=== PATIENT | male | born 1980 | race Caucasian/White ===

== ENCOUNTER 2022-12-23 09:21 | Emergency (ER) | payer MEDICAID, SELFPAY ==
[2022-12-23] VITALS (10 sets, daily range): BP systolic 109–149; BP diastolic 81–101; PULSE 52–68; RESP 17–20; TEMP 36.4–36.6; O2SAT 99–100; BMI 18.9; BMI 18.1
--- NOTE | 2022-12-23 09:28 | XR_ITS ---
FINAL REPORT TECHNIQUE: Chest PA & Lateral CLINICAL HISTORY: PAIN IN RIGHT LUNG COMPARISON: 01/2018 FINDINGS: 2 views of the chest were performed. The heart size is normal. The mediastinum is within normal limits. There is no acute cardiopulmonary process. There are no pleural effusions. There is no pneumothorax. The bony thorax appears intact. IMPRESSION: No acute cardiopulmonary process. Reviewed, Interpreted and Dictated by Steven Handley III, MD Transcribed by Shaun Casey Authenticated and [facility]
--- NOTE | 2022-12-23 10:18 | EXP.UTC ---
Discharge Plan Disposition Patient Disposition: Still a Patient Prescriptions Prescriptions: No Action ondansetron 4 MG Tab.Rapdis 4 mg PO Q8HP PRN (Reason: Nausea) Qty: 20 0RF Referrals Follow up/Referrals: Oscar Butt MD [Staff Physician] - See instructions Provider,MD Mitul [Primary Care Provider] - See instructions Activity Restrictions/Add. Instructions Additional Instructions/Restrictions: At this time it was felt you are safe to be discharged home. If new or worsening symptoms please do not hesitate to return the emergency department. Please call and schedule appointment with Dr. Butt as soon as you are able. Clinical Impressions Clinical Impression: Chest pain, Pleurisy Instructions Patient Instructions: DI for Pleurisy Discharge ED Provider: Migue Bernal [facility] General Chief complaint: Chest Pain Stated complaint: pain in lungs Mode of Arrival: Ambulatory Source of Information: Patient Limitations: No Limitations Time Seen by Provider: 12/23/22 10:18 Description of Symptoms (Recalled from Triage Doc. by RN): PATIENT C/O SUDDEN SHARP PAIN TO RIGHT LUNG AREA THAT STARTED ON THURSDAY HEENT Symptoms (Recalled from RN notes): No Resp Symptoms (Recalled from RN notes): Yes Skin Symptoms (Recalled from RN notes): No MS Symptoms (Recalled from RN notes): No Functional Status (Recalled from RN notes): WNL History of Present Illness Provider Complaint: Patient states that he was standing in line at the store on Thursday and suddenly got a sharp pain that was sanket in the middle of his lower mid chest that has since moved into the right side of his chest States that the pain is sharp and has continued since Thursday and worse when he takes a deep breath States that he hasnt been sick or anything and denies coughing denies feeling SOA States that pain kept him up most of the night last night so today he came in to get checked Related Data Previous Rx's Medication Instructions Recorded ondansetron 4 mg disintegrating 4 mg PO Q8HP PRN Nausea ##20 01/14/18 tablet Allergies Allergy/AdvReac Type Severity Reaction Status Date / Time acetaminophen Allergy Unknown Verified 01/14/18 12:06 [From DARVOCET-N] propoxyphene Allergy Unknown Verified 01/14/18 12:06 [From DARVOCET-N] Worker's Comp Is this a Worker's Comp case?: No PFSH PFSH Disclaimer: The information contained in this section may have been updated after the patient was seen, as this information can be updated by other users. Social History (Updated 12/23/22 @ 13:54 by Migue Bernal MD) Smoking Status: Current every day smoker tobacco type: cigarettes alcohol intake: never current occupational status: other Travel in the last 8 weeks: None ROS Obtained: Yes All systems reviewed & no additional complaints except as documented and Yes Systems reviewed as appropriate & no additional complaints except as documented Constitutional Constitutional: Reports system reviewed and no additional complaints, except as documented, Reports as per HPI, Denies body ache, Denies chills and Denies fever(s) ENT Ears, Nose, Mouth, and Throat: Reports system reviewed and no additional complaints, except as documented and Reports as per HPI Cardiovascular Cardiovascular: Reports system reviewed and no additional complaints, except as documented and Reports as per HPI Respiratory Respiratory: Reports system reviewed and no additional complaints, except as documented, Reports as per HPI, Denies shortness of breath, Denies chest congestion and Reports pain with breathing (right side of chest describes as sharp and sudden onset on Thursday) Gastrointestinal Gastrointestingal: Reports system reviewed and no additional complaints, except as documented and as per HPI Physical Exam General General appearance: alert and in no apparent distress ENT ENT exam: Present mucous membranes moist Respiratory Respiratory exam: Present normal lung
--- NOTE | 2022-12-23 10:50 | PC.NURSE ---
pt arrived to er from [facility]
--- NOTE | 2022-12-23 10:52 | ECG_ITS ---
APPROVED REPORT Exam: Resting ECG HR:62 bpm ECG Measurements Heart Rate 62 AXES ME 155 P 71 QRSd 115 QRS 86 QT 405 T 51 QTc 411 Conclusion SINUS RHYTHM WITH SINUS ARRHYTHMIA MODERATE INTRAVENTRICULAR CONDUCTION DELAY [110+ ms QRS DURATION] BORDERLINE ECG UNCONFIRMED REPORT Electronically signed by : Brodie Jimenez MD 12/23/2022 17:11:29
--- NOTE | 2022-12-23 10:56 | HMH.EDGENADL ---
Discharge Plan Disposition Patient Disposition: Still a Patient Prescriptions Prescriptions: No Action ondansetron 4 MG Tab.Rapdis 4 mg PO Q8HP PRN (Reason: Nausea) Qty: 20 0RF Referrals Follow up/Referrals: Provider,MD Mitul [Primary Care Provider] - See instructions Oscar Butt MD [Staff Physician] - See instructions Activity Restrictions/Add. Instructions Additional Instructions/Restrictions: At this time it was felt you are safe to be discharged home. If new or worsening symptoms please do not hesitate to return the emergency department. Please call and schedule appointment with Dr. Butt as soon as you are able. Clinical Impressions Clinical Impression: Chest pain, Pleurisy Discharge ED Provider: Migue Bernal General Adult HPI General Chief complaint: Chest Pain Stated complaint: pain in lungs Time Seen by Provider: 12/23/22 10:18 Mode of Arrival: Ambulatory Source of Information: Patient Limitations: No Limitations Description of Symptoms (Recalled from ER Triage Doc. by RN): PATIENT C/O SUDDEN SHARP PAIN TO RIGHT LUNG AREA THAT STARTED ON THURSDAY History of Present Illness HPI narrative: Patient is a 42-year-old male with past medical history of TBI, chronic smoking who presents emergency department for evaluation of chest pain to transfer patient emergent care. Onset was acute, occurring on Thursday. Initially substernal however since has migrated to his right chest. It does not radiate, it is persistent, nonmodifiable. Patient has no cough, fever, other acute complaints at this time. Related Data Previous Rx's Medication Instructions Recorded ondansetron 4 mg disintegrating 4 mg PO Q8HP PRN Nausea ##20 01/14/18 tablet Allergies Allergy/AdvReac Type Severity Reaction Status Date / Time acetaminophen Allergy Unknown Verified 01/14/18 12:06 [From DARVOCET-N] propoxyphene Allergy Unknown Verified 01/14/18 12:06 [From DARVOCET-N] [facility] Disclaimer: The information contained in this section may have been updated after the patient was seen, as this information can be updated by other users. Social History Smoking Status: Current every day smoker tobacco type: cigarettes alcohol intake: never current occupational status: other Travel in the last 8 weeks: None ROS Obtained: Yes Systems reviewed as appropriate & no additional complaints except as documented Physical Exam General General appearance: alert and in no apparent distress Head Head exam: atraumatic and normocephalic Eye Eye exam: Present PERRL and EOMI ENT ENT exam: Present mucous membranes moist Neck Neck exam: Present normal inspection Chest Chest inspection: Present normal inspection and symmetric chest wall rise Respiratory Respiratory exam: Present normal lung sounds bilaterally; Absent respiratory distress Cardiovascular Cardiovascular exam: Present regular rate and normal rhythm Abdominal Exam Abdominal exam: Present soft; Absent tenderness Extremities Exam Extremities exam: Present normal inspection Neurological Exam Neurological exam: Present alert; Absent motor sensory deficit Psychiatric Psychiatric exam: Present normal affect Skin Skin exam: Present warm and dry Medical Decision Making Duc Inquiry Pt receiving controlled substance: No Vital Signs: 12/23/22 09:45 12/23/22 10:54 12/23/22 11:01 Temperature 97.8 F Temperature Source Oral Pulse Rate 65 62 Pulse Rate [Apical] Pulse Rate [Left Brachial] 68 Respiratory Rate 19 20 Blood Pressure 149/98 H 138/101 H Blood Pressure [Left Arm] 139/90 Blood Pressure Mean 106 111 Blood Pressure Mean [Left Arm] 106 Blood Pressure Source [Left Arm] Automatic Cuff Blood Pressure Position [Left Arm] Sitting 02 Sat by Pulse Oximetry 100 100 99 Oxygen Delivery Method Room Air 12/23/22 11:30 12/23/22 10:52 12/23/22 12:00 Temperature 97.6 F Temperature Source Oral Pulse Rate 60 62
[2022-12-23 11:37] LABS: Basophils % 0.5 % (0.1-2.0); Eosinophils # 0.2 K/mm3 (0.0-0.4); Eosinophils % 2.2 % (0.1-12.0); Hematocrit 46.2 % (42.0-52.0); Hemoglobin 14.6 g/dL (14.1-18.0); Lymphocytes # 1.5 K/mm3 (0.7-4.5); Lymphocytes % 22.3 % (10-50); Mean Corpuscular HGB Conc 31.6 g/dL (31.8-35.4); Mean Corpuscular Volume 82.5 fl (80-94); Mean Platelet Volume 8.1 fl (7.4-10.4); Monocytes # 0.3 K/mm3 (0.1-1.0); Monocytes % 4.5 % (1.7-9.3); Neutrophils # 4.7 K/mm3 (1.8-7.8); Neutrophils % 70.5 % (37.0-80.0); Platelet Count 219 K/mm3 (142-424); Red Cell Distribution Width 14.2 % (11.5-17.5); White Blood Count 6.7 K/mm3 (4.8-10.8)
[2022-12-23 11:42] LABS: Chloride 105 mmol/L (98-107); Potassium 4.3 mmoL/L (3.5-5.1); Sodium 142 mmol/L (136-145)
[2022-12-23 11:44] LABS: Blood Urea Nitrogen 16 mg/dl (9-20); Creatinine Clearance Estimated 81 mL/min (50-200); Estimated Glomerular Filt Rate 82 ml/min (>60); GFR (African American) 99 ML/MIN (>60)
[2022-12-23 11:45] LABS: Alanine Aminotransferase 17 U/L (12-78); Albumin Level 4.5 g/dl (3.5-5.0); Albumin/Globulin Ratio 1.6 (1.1-1.8); Alkaline Phosphatase 68 U/L (38-126); Anion Gap 11.3 mEq/L (5-15); Aspartate Amino Transferase 32 U/L (17-59); Bilirubin,Total 0.4 mg/dl (0.2-1.3); Carbon Dioxide 30 mmol/L (22.0-30.0); Globulin 2.9 g/dL (1.3-3.2); Glucose 112 mg/dl (74-100); Total Protein,Serum 7.4 g/dl (6.3-8.2)
--- NOTE | 2022-12-23 11:56 | PC.NURSE ---
checked on pt stated nothing needed at this time,call light at bs
[2022-12-23 12:00] LABS: Troponin I < 0.01 ng/ml (0.00-0.034)
--- NOTE | 2022-12-23 12:31 | PC.NURSE ---
Rounded on patient; no needs at this time. Patient sitting up on ED stretcher playing on cell phone. Call holman within reach
--- NOTE | 2022-12-23 12:43 | PC.NURSE ---
DR BANEGAS AT BEDSIDE TO UPDATE PT
--- NOTE | 2022-12-23 13:11 | PC.NURSE ---
notified lab sending green top tube up at this time for second troponin, per ER MD Bernal wants a 2 hour.
[2022-12-23 13:49] LABS: Troponin I < 0.01 ng/ml (0.00-0.034)
== END 2022-12-23 14:08 | disposition still patient (30) ==
LOC: UTC 10:47 → ER 10:47
PROVIDERS: Emergency Provider Emergency Medicine
DX: R07.9 Chest pain, unspecified (principal); R09.1 Pleurisy; I44.7 Left bundle-branch block, unspecified; F17.210 Nicotine dependence, cigarettes, uncomplicated; Z87.820 Personal history of traumatic brain injury
CPT/HCPCS: 71046; 80053; 84484; 85025; 93005; 99285

== ENCOUNTER 2024-11-02 09:13 | Outpatient (CLI) | payer MEDICAID, SELFPAY ==
[2024-11-02 15:25] LABS: Hematocrit 40.5 % (42.0-52.0); Hemoglobin 12.8 g/dL (14.1-18.0); Immature Granulocytes % 0.2 %; Mean Corpuscular HGB Conc 31.6 g/dL (31.8-35.4); Mean Corpuscular Hemoglobin 25.4 pg (27.0-31.2); Mean Corpuscular Volume 80.5 fl (80-94); Nucleated Red Blood Cells % 0 %; Platelet Count 222 K/mm3 (142-424); Red Blood Count 5.03 M/mm3 (4.60-6.20); Red Cell Distribution Width-SD 45.0 fL; White Blood Count 5.8 K/mm3 (4.8-10.8)
[2024-11-02 15:35] LABS: Albumin Level 4.7 g/dl (3.5-5.0); Chloride 102 mmol/L (98-107)
[2024-11-02 15:36] LABS: Potassium 4.3 mmoL/L (3.5-5.1); Sodium 137 mmol/L (136-145)
[2024-11-02 15:38] LABS: Alanine Aminotransferase 14 U/L (12-78); Albumin/Globulin Ratio 2.0 (1.1-1.8); Alkaline Phosphatase 65 U/L (38-126); Anion Gap 10.3 mEq/L (5-15); Aspartate Amino Transferase 31 U/L (17-59); Bilirubin,Total 0.9 mg/dl (0.2-1.3); Blood Urea Nitrogen 18 mg/dl (9-20); Carbon Dioxide 29 mmol/L (22.0-30.0); Creatinine,Serum 0.80 mg/dl (0.66-1.25); Estimated Glomerular Filt Rate 105 ml/min (>60); GFR (African American) 126 ML/MIN (>60); Globulin 2.4 g/dL (1.3-3.2); Iron 136 ug/dL (49-181); Total Protein,Serum 7.1 g/dl (6.3-8.2)
[2024-11-02 15:39] LABS: Calcium 9.8 mg/dl (8.4-10.2); Cholesterol 132 mg/dl (140-200); Glucose 113 mg/dl (74-100); HDL Cholesterol 50 mg/dl (40-60); Triglycerides 61 mg/dl (30-150)
[2024-11-02 15:50] LABS: Total Iron Binding Capacity 262 ug/dL (261-462)
[2024-11-02 16:29] LABS: Hepatitis C Ab Qual. W/ RFX NEGATIVE (Negative)
[2024-11-02 17:53] LABS: Thyroid Stimulating Hormone 1.28 uIU/mL (0.465-4.68)
[2024-11-02 17:57] LABS: Ferritin 85.8 ng/ml (17.9-464)
[2024-11-02 19:56] LABS: Hemoglobin A1C 5.6 % (4.0-6.0)
[2024-11-03 05:48] LABS: Hepatitis B Surface Antigen Negative (Negative)
== END 2024-11-02 23:59 | disposition home or self-care (01) ==
LOC: LAB.DROPOF 11-03 14:45
PROVIDERS: PCP Nurse Practitioner Family; Visit Provider Nurse Practitioner Family
DX: E16.2 Hypoglycemia, unspecified (principal); R07.9 Chest pain, unspecified; I10 Essential (primary) hypertension; Z11.59 Encounter for screening for other viral diseases
CPT/HCPCS: 80053; 80061; 82728; 83036; 83540; 83550; 84443; 85025; 86803; 87340; 87389

== ENCOUNTER 2024-11-14 12:36 | Emergency (ER) | payer MEDICAID, SELFPAY ==
[2024-11-14 12:47] VITALS: BP 132/80; PULSE 58; RESP 18; TEMP 37.4; O2SAT 98; BMI 18.1
[2024-11-14 13:00] VITALS: BP 129/81; PULSE 70; O2SAT 100
--- NOTE | 2024-11-14 13:00 | HMH.EDGENADL ---
Discharge Plan Disposition Patient Disposition: Home, Self-Care Prescriptions Prescriptions: New promethazine 25 mg tablet 25 mg PO Q6H PRN (Reason: nausea and vomiting) Qty: 20 0RF No Action multivitamin [Daily Multi-Vitamin] Tablet 1 tab PO DAILY Referrals Follow up/Referrals: Ayden Hickey APRN [Primary Care Provider, [facility]] - See instructions Activity Restrictions/Add. Instructions Additional Instructions/Restrictions: Increase fluids and rest. Drink Gatorade or Pedialyte. Take nausea meds as needed. Return to ER if increased problems and concerns. Clinical Impressions Clinical Impression: Gastroenteritis, Food poisoning Instructions Patient Instructions: How to Avoid Food Poisoning, DI for Diarrhea and Traveler's Diarrhea -- Adult, DI for Nausea -- Adult Print Language Print Language: Tamazight Discharge ED Provider: Warren Quezada Adult HPI <Mehreen Ace (ED), [employer] SCIENCE INSTRUCTOR - Last Filed: 11/14/24 17:14> General Chief complaint: Nausea/Vomiting/Diarrhea Stated complaint: vomiting, weakness, low fever, chills Time Seen by Provider: 11/14/24 12:57 Mode of Arrival: Wheelchair Source of Information: Patient and Spouse Description of Symptoms (Recalled from ER Triage Doc. by RN): pt presents to ED c/o nausea, vomitting, weakness. spouse at bedside reports that they ate breakfast at [employer] this morning. around 1030 am after eating pt began to have nausea, vomitting and weakness. History of Present Illness HPI narrative: 44-year-old male presents to the ED with complaint of nausea and vomiting 6 or 7 times since he ate [employer] breakfast this morning. Significant other states that he ate and then 10 minutes later started vomiting, having body aches and chills. He has been complaining of weakness as well. Says he was fine yesterday and last night and up until he ate breakfast this morning from [employer]. He has had no illness recently. He does have history of subdural hematomas when he was 18. He recently started going back to the PCP for these. His PCP scheduled him for an MRI of his brain to check on his headaches from the subdural hematomas when he was a kid. Related Data Home Medications ?Medication ?Instructions ?Recorded ?Confirmed multivitamin (Daily Multi-Vitamin 1 tab PO DAILY 11/02/24 11/02/24 tablet) Previous Rx's ?Medication ?Instructions ?Recorded promethazine 25 mg tablet 25 mg PO Q6H PRN nausea and 11/14/24 vomiting #20 tabs Allergies Allergy/AdvReac Type Severity Reaction Status Date / Time propoxyphene (From Allergy Unknown Hives Verified 11/14/24 12:54 DARVOCET-N) PFS <Mehreen Ace (ED), ADJ[employer] POLIT[employer] SCIENCE INSTRUCTOR - Last Filed: 11/14/24 17:14> [facility] Disclaimer: The information contained in this section may have been updated after the patient was seen, as this information can be updated by other users. Medical History (Updated 11/14/24 @ 17:15 by Mehreen Ace (ED), [employer] SCIENCE INSTRUCTOR) HTN, goal below 140/80 Hypoglycemia Shaking Anxiety Testicular pain TBI (traumatic brain injury) Subdural hematoma Surgical History (Updated 11/02/24 @ 08:18 by Deepa Flores MA) History of nasal surgery Family History (Updated 11/02/24 @ 08:17 by Deepa Flores MA) Mother Cancer Hypertension Diabetes Arthritis Sister Autonomic neuropathy due to disorder of immune function Grandmother Arthritis Father DDD (degenerative disc disease) Arthritis Social History (Updated 12/23/22 @ 13:54 by Migue Bernal MD) Smoking Status: Current every day smoker tobacco type: cigarettes alcohol intake: never current occupational status: other Travel in the last 8 weeks?: None Have you lived/traveled outside US in past 30 days?: No Contact w/someone who lives/traveled outside US past 30 days?: No Exposure to someone with infectious disease in past 14 days?: No Do you have a fever (greater than 100.4 F or 38 C)?: No Have you tested positive for COVID-19?: No Exposed to someone with COVID-19 in past 14 days?: No Do you have a sore throat?: No Do you have a cough?: No Do you have any weakness?: No Do you have any diarrhea?: No Are you experiencing any unusual bleeding?: No Do you have any muscle aches/pain?: No Do you have any abdominal pain?: No Are you experiencing loss of taste or smell?: No <Mehreen Ace (ED), [employer] POLIT[employer] SCIENCE INSTRUCTOR - Last Filed: 11/14/24 17:14> ROS Obtained: Yes Systems reviewed as appropriate & no additional complaints except as documented Constitutional Constitutional: Reports as per HPI Physical Exam <Mehreen Alvasue (ED), ADJ[employer]CT POLIT[employer] SCIENCE INSTRUCTOR - Last Filed: 11/14/24 17:14> General General appearance: alert Head Head exam: normocephalic Eye Eye exam: Present normal appearance, PERRL and EOMI ENT ENT exam: Present mucous membranes moist Neck Neck exam: Present full ROM and trachea midline Respiratory Respiratory exam: Present normal lung sounds bilaterally Cardiovascular Cardiovascular exam: Present regular rate, normal rhythm, normal heart sounds, +S1 and +S2 Abdominal Exam Abdominal exam: Present soft and normal bowel sounds Abdominal tenderness: Present epigastrium exam: Present normal inspection Extremities Exam Extremities exam: Present normal inspection, full ROM and normal capillary refill Neurological Exam Neurological exam: Present alert and oriented X3 Skin Skin exam: Present warm, dry and intact Medical Decision Making <Mehreen Ace (ED), [employer] POLIT[employer] SCIENCE INSTRUCTOR - Last Filed: 11/14/24 17:14> Medical Records Screening: Per USPSTF and CDC recommendations, given the prevalence of disease in our region, it is our hospital?s policy to screen for HIV and viral Hepatitis for all patients aged 18 and over and those with ongoing risk factors. Duc Inquiry Pt receiving controlled substance: No Duc was queried for this patient: No Vital Signs: 11/14/24 12:47 11/14/24 13:00 11/14/24 13:30 Temperature 99.3 F Temperature Source Oral Pulse Rate 70 59 L Pulse Rate [Right Radial] 58 L Respiratory Rate 18 Blood Pressure 129/81 129/85 Blood Pressure [Right Arm] 132/80 Blood Pressure Mean [Right Arm] 97 02 Sat by Pulse Oximetry 98 100 100 Oxygen Delivery Method Room Air 11/14/24 13:53 11/14/24 17:31 Temperature 98.8 F Temperature Source Oral Pulse Rate 47 L 62 Pulse Rate [Right Radial] Respiratory Rate 18 Blood Pressure 124/79 117/72 Blood Pressure [Right Arm] Blood Pressure Mean [Right Arm] 02 Sat by Pulse Oximetry 100 Oxygen Delivery Method Room Air Lab Data Lab Results 11/14/24 12:45: WBC 8.2, RBC 5.12, Hgb 13.2 L, Hct 39.7 L, MCV 77.5 L, MCH 25.8 L, MCHC 33.2, RDW 14.7, Plt Count 260, MPV 10.6 H, Neut % (Auto) 77.2, Lymph % (Auto) 16.9, Meeker % (Auto) 4.9, Eos % (Auto) 0.1, Baso % (Auto) 0.5, Neut # (Auto) 6.3, Lymph # (Auto) 1.4, Meeker # (Auto) 0.4, Eos # (Auto) 0.0, Baso # (Auto) 0.0, Sodium 136, Potassium 3.5, Chloride 104, Carbon Dioxide 25, Anion Gap 10.5, BUN 13, Creatinine 0.80, Estimated Creat Clear 97, Estimated GFR 105, Est GFR ( Amer) 126, Glucose 123 H, Calcium 9.7, Magnesium 1.9, Total Bilirubin 0.6, AST 34, ALT 17, Alkaline Phosphatase 72, Troponin I < 0.01, Total Protein 7.5, Albumin 4.1, Globulin 3.4 H, Albumin/Globulin Ratio 1.2, Lipase 137 11/14/24 12:45 11/14/24 12:45 Orders (Tests/Meds): ED MEDICATIONS Discontinued Medications Generic Name Dose Route Start Last Admin Trade Name Freq PRN Reason Stop Dose Admin Acetaminophen 1,000 mg 11/14/24 13:16 11/14/24 13:29 Acetaminophen 1,000mg/100ml Vial IV 11/14/24 13:17 1,000 mg ONCE ONE Administration Famotidine 20 mg 11/14/24 13:15 11/14/24 13:30 Famotidine 20mg/2ml Vial IV 11/14/24 13:16 20 mg ONCE ONE Administration Sodium Chloride 1,000 mls @ 999 mls/hr 11/14/24 13:15 11/14/24 13:39 Sod Chlor 0.9% 1000ml Bag IV 11/14/24 14:15 999 mls/hr .Q1H1M ONE Administration Sodium Chloride 1,000 mls @ 999 mls/hr 11/14/24 15:52 11/14/24 15:57 Sod Chlor 0.9% 1000ml Bag IV 11/14/24 16:52 999 mls/hr .Q1H1M ONE Administration Ondansetron HCl 4 mg 11/14/24 15:52 11/14/24 15:57 Ondansetron 4mg/2ml Vial IV 11/14/24 15:53 4 mg ONCE ONE Administration Promethazine HCl 25 mg 11/14/24 13:15 11/14/24 13:38 Promethazine Hcl 25mg/Ml 1ml Vial IV 11/14/24 13:16 25 mg ONCE ONE Administration Sodium Chloride 8 ml 11/14/24 13:15 11/14/24 13:29 Sodium Chloride 0.9% 10ml Vial IV 12/14/24 13:14 8 ml NEEDED PRN Administration dilute pepcid Sodium Chloride 25 ml 11/14/24 13:15 11/14/24 13:39 Sodium Chloride 0.9% 25ml Bag IV 11/14/24 13:16 25 ml ONCE ONE Administration ORDERS Category Date Time Status CT abdomen pelvis wo con Stat Cat Scan 11/14/24 13:55 Completed CBC [Complete Blood Count Auto Diff] Stat Lab 11/14/24 12:45 Completed Comprehensive Metabolic Panel Stat Lab 11/14/24 12:45 Completed Lipase Stat Lab 11/14/24 12:45 Completed Magnesium Stat Lab 11/14/24 12:45 Completed Trop I [Troponin I] Stat Lab 11/14/24 12:45 Completed Medical Decision Narrative: patient is a 44-year-old male presenting to the emergency department for evaluation of nausea, vomiting and bodyaches since he ate breakfast this morning from [employer]. Patient is hemodynamically stable and nontoxic-appearing upon arrival, afebrile. Differential diagnosis includes food poisoning, viral illness, among others. Workup will be conducted with hematologic labs, specific imaging. Initial inventions include crystalloid bolus, analgesics including Tylenol, famotidine and Phenergan. Initial workup reviewed by me hematologic labs are remarkable for normal white count, essentially normal labs. Imaging informally interpreted by me and remarkable for nothing acute. Formal imaging read remarkable for nothing acute. Upon repeat evaluation patient had 1 bag of fluids and Phenergan for nausea and he continues to vomit. Ordered another bag of fluids and Zofran. After having the other bag of fluids and Zofran patient feels improved and wants to go home. We discussed return precautions. Patient safe for discharge home. <Warren Quezada MD - Last Filed: 11/15/24 13:29> Vital Signs: 11/14/24 12:47 11/14/24 13:00 11/14/24 13:30 Temperature 99.3 F Temperature Source Oral Pulse Rate 70 59 L Pulse Rate [Right Radial] 58 L Respiratory Rate 18 Blood Pressure 129/81 129/85 Blood Pressure [Right Arm] 132/80 Blood Pressure Mean [Right Arm] 97 02 Sat by Pulse Oximetry 98 100 100 Oxygen Delivery Method Room Air 11/14/24 13:53 11/14/24 17:31 Temperature 98.8 F Temperature Source Oral Pulse Rate 47 L 62 Pulse Rate [Right Radial] Respiratory Rate 18 Blood Pressure 124/79 117/72 Blood Pressure [Right Arm] Blood Pressure Mean [Right Arm] 02 Sat by Pulse Oximetry 100 Oxygen Delivery Method Room Air Lab Data Lab Results 11/14/24 12:45: WBC 8.2, RBC 5.12, Hgb 13.2 L, Hct 39.7 L, MCV 77.5 L, MCH 25.8 L, MCHC 33.2, RDW 14.7, Plt Count 260, MPV 10.6 H, Neut % (Auto) 77.2, Lymph % (Auto) 16.9, Meeker % (Auto) 4.9, Eos % (Auto) 0.1, Baso % (Auto) 0.5, Neut # (Auto) 6.3, Lymph # (Auto) 1.4, Meeker # (Auto) 0.4, Eos # (Auto) 0.0, Baso # (Auto) 0.0, Sodium 136, Potassium 3.5, Chloride 104, Carbon Dioxide 25, Anion Gap 10.5, BUN 13, Creatinine 0.80, Estimated Creat Clear 97, Estimated GFR 105, Est GFR ( Amer) 126, Glucose 123 H, Calcium 9.7, Magnesium 1.9, Total Bilirubin 0.6, AST 34, ALT 17, Alkaline Phosphatase 72, Troponin I < 0.01, Total Protein 7.5, Albumin 4.1, Globulin 3.4 H, Albumin/Globulin Ratio 1.2, Lipase 137 Orders (Tests/Meds): ED MEDICATIONS Discontinued Medications Generic Name Dose Route Start Last Admin Trade Name Freq PRN Reason Stop Dose Admin Acetaminophen 1,000 mg 11/14/24 13:16 11/14/24 13:29 Acetaminophen 1,000mg/100ml Vial IV 11/14/24 13:17 1,000 mg ONCE ONE Administration Famotidine 20 mg 11/14/24 13:15 11/14/24 13:30 Famotidine 20mg/2ml Vial IV 11/14/24 13:16 20 mg ONCE ONE Administration Sodium Chloride 1,000 mls @ 999 mls/hr 11/14/24 13:15 11/14/24 13:39 Sod Chlor 0.9% 1000ml Bag IV 11/14/24 14:15 999 mls/hr .Q1H1M ONE Administration Sodium Chloride 1,000 mls @ 999 mls/hr 11/14/24 15:52 11/14/24 15:57 Sod Chlor 0.9% 1000ml Bag IV 11/14/24 16:52 999 mls/hr .Q1H1M ONE Administration Ondansetron HCl 4 mg 11/14/24 15:52 11/14/24 15:57 Ondansetron 4mg/2ml Vial IV 11/14/24 15:53 4 mg ONCE ONE Administration Promethazine HCl 25 mg 11/14/24 13:15 11/14/24 13:38 Promethazine Hcl 25mg/Ml 1ml Vial IV 11/14/24 13:16 25 mg ONCE ONE Administration Sodium Chloride 8 ml 11/14/24 13:15 11/14/24 13:29 Sodium Chloride 0.9% 10ml Vial IV 12/14/24 13:14 8 ml NEEDED PRN Administration dilute pepcid Sodium Chloride 25 ml 11/14/24 13:15 11/14/24 13:39 Sodium Chloride 0.9% 25ml Bag IV 11/14/24 13:16 25 ml ONCE ONE Administration ORDERS Category Date Time Status CT abdomen pelvis wo con Stat Cat Scan 11/14/24 13:55 Completed CBC [Complete Blood Count Auto Diff] Stat Lab 11/14/24 12:45 Completed Comprehensive Metabolic Panel Stat Lab 11/14/24 12:45 Completed Lipase Stat Lab 11/14/24 12:45 Completed Magnesium Stat Lab 11/14/24 12:45 Completed Trop I [Troponin I] Stat Lab 11/14/24 12:45 Completed Medical Decision Narrative: patient is a 44-year-old male presenting to the emergency department for evaluation of nausea, vomiting and bodyaches since he ate breakfast this morning from [employer]. Patient is hemodynamically stable and nontoxic-appearing upon arrival, afebrile. Differential diagnosis includes food poisoning, viral illness, among others. Workup will be conducted with hematologic labs, specific imaging. Initial inventions include crystalloid bolus, analgesics including Tylenol, famotidine and Phenergan. Initial workup reviewed by me hematologic labs are remarkable for normal white count, essentially normal labs. Imaging informally interpreted by me and remarkable for nothing acute. Formal imaging read remarkable for nothing acute. Upon repeat evaluation patient had 1 bag of fluids and Phenergan for nausea and he continues to vomit. Ordered another bag of fluids and Zofran. After having the other bag of fluids and Zofran patient feels improved and wants to go home. We discussed return precautions. Patient safe for discharge home. I was consulted by the ARMEN, and we discussed the complexity of the problems being addressed. I approve the treatment and management plan for this patient's care in the emergency department, thus performing a substantive portion of the medical decision making. Warren Quezada MD Critical Care <Warren Quezada MD - Last Filed: 11/15/24 13:29> Critical Care Time Critical Care Time: No
[2024-11-14 13:23] LABS: Hematocrit 39.7 % (42.0-52.0); Hemoglobin 13.2 g/dL (14.1-18.0); Immature Granulocytes % 0.4 %; Mean Corpuscular HGB Conc 33.2 g/dL (31.8-35.4); Mean Corpuscular Hemoglobin 25.8 pg (27.0-31.2); Mean Corpuscular Volume 77.5 fl (80-94); Nucleated Red Blood Cells % 0 %; Platelet Count 260 K/mm3 (142-424); Red Blood Count 5.12 M/mm3 (4.60-6.20); Red Cell Distribution Width-SD 41.0 fL; White Blood Count 8.2 K/mm3 (4.8-10.8)
[2024-11-14] MEDS: SODIUM CHLORIDE 0.9% 10ML VIAL 8 ML IV (13:29)
[2024-11-14] MEDS: ACETAMINOPHEN 1,000MG/100ML VIAL 1000 MG IV (13:29)
[2024-11-14 13:30] VITALS: BP 129/85; PULSE 59; O2SAT 100
[2024-11-14] MEDS: FAMOTIDINE 20MG/2ML VIAL 20 MG IV (13:30)
[2024-11-14 13:32] LABS: Albumin Level 4.1 g/dl (3.5-5.0); Chloride 104 mmol/L (98-107); Sodium 136 mmol/L (136-145)
[2024-11-14 13:33] LABS: Potassium 3.5 mmoL/L (3.5-5.1)
[2024-11-14 13:35] LABS: Alanine Aminotransferase 17 U/L (12-78); Albumin/Globulin Ratio 1.2 (1.1-1.8); Alkaline Phosphatase 72 U/L (38-126); Anion Gap 10.5 mEq/L (5-15); Aspartate Amino Transferase 34 U/L (17-59); Bilirubin,Total 0.6 mg/dl (0.2-1.3); Blood Urea Nitrogen 13 mg/dl (9-20); Carbon Dioxide 25 mmol/L (22.0-30.0); Creatinine Clearance Estimated 97 mL/min (50-200); Creatinine,Serum 0.80 mg/dl (0.66-1.25); Estimated Glomerular Filt Rate 105 ml/min (>60); GFR (African American) 126 ML/MIN (>60); Globulin 3.4 g/dL (1.3-3.2); Total Protein,Serum 7.5 g/dl (6.3-8.2)
[2024-11-14 13:36] LABS: Calcium 9.7 mg/dl (8.4-10.2); Glucose 123 mg/dl (74-100); Lipase 137 U/L (23-300); Magnesium 1.9 mg/dl (1.6-2.3)
[2024-11-14] MEDS: PROMETHAZINE HCL 25MG/ML 1ML VIAL 25 MG IV (13:38)
[2024-11-14] MEDS: SODIUM CHLORIDE 0.9% 25ML BAG 25 ML IV (13:39)
[2024-11-14] MEDS: 0.9 % SODIUM CHLORIDE 1000ML 1,000 ML 999 ML IV ×2 (13:39→15:57)
[2024-11-14 13:48] LABS: Troponin I < 0.01 ng/ml (0.00-0.034)
[2024-11-14 13:53] VITALS: BP 124/79; PULSE 47; O2SAT 100
--- NOTE | 2024-11-14 13:55 | CT_ITS ---
FINAL REPORT TECHNIQUE: Axial images through the abdomen and pelvis were performed without contrast. This study was performed with techniques to keep radiation doses as low as reasonably achievable, (ALARA). Individualized dose reduction techniques using automated exposure control or adjustment of mA and/or kV according to the patient's size were employed. CLINICAL HISTORY: abdominal pain, nausea and vomiting COMPARISON: None FINDINGS: Abdomen: The lung bases are clear. The liver parenchyma is homogeneous. The gallbladder is present. Calcified granulomas are present in the spleen. The pancreas, adrenals and kidneys are unremarkable. Vascular calcifications are noted of the abdominal aorta. Pelvis: The urinary bladder is normal in size and configuration. The appendix is not visualized. There is a relative lack of intra-abdominal fat. Calcified phleboliths are present in the pelvis. There is no pelvic mass or inflammation. Moderate changes of degenerative disc disease are noted at L5-S1. IMPRESSION: No acute abnormality. Reviewed, Interpreted and Dictated by Robert Calderón MD Transcribed by Marycruz Kamara Authenticated and . [facility]
--- NOTE | 2024-11-14 14:04 | PC.NURSE ---
pt to rad
[2024-11-14] MEDS: ONDANSETRON 4MG/2ML VIAL 4 MG IV (15:57)
[2024-11-14 17:31] VITALS: BP 117/72; PULSE 62; RESP 18; TEMP 37.1; O2SAT 99
== END 2024-11-14 17:32 | disposition home or self-care (01) ==
PROVIDERS: Nurse Practitioner; Emergency Provider Student in an Organized Health Care Education/Training Program; PCP Nurse Practitioner Family
DX: A05.9 Bacterial foodborne intoxication, unspecified (principal); K52.9 Noninfective gastroenteritis and colitis, unspecified; I10 Essential (primary) hypertension
CPT/HCPCS: 74176; 80053; 83690; 83735; 84484; 85025; 96361; 96374; 96375; 99285; J0131; J2405; J2550; J7030

== ENCOUNTER 2024-11-22 16:49 | Outpatient (CLI) | payer MEDICAID, SELFPAY ==
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
[2024-11-22] MEDS: SODIUM CHLORIDE 0.9% 10ML SYR (RAD ONLY) 10 ML IV (17:27)
[2024-11-22] MEDS: GADOTERIDOL INJ 20ML SYRINGE 13 ML IV (17:28)
== END 2024-11-22 23:59 | disposition home or self-care (01) ==
LOC: RAD 16:49
PROVIDERS: PCP Nurse Practitioner Family; Visit Provider Nurse Practitioner Family
DX: S06.9XAA Unspecified intracranial injury with loss of consciousness status unknown, initial encounter (principal); G25.2 Other specified forms of tremor
CPT/HCPCS: 70553; A9576